=== PATIENT | female | born 1985 | race African-American/Black ===

== ENCOUNTER 2016-04-20 12:53 | Emergency (ER) | payer SELFPAY ==
[2016-04-20 13:35] LABS: APPEARANCE CLOUDY (CLEAR); BILIRUBIN NEGATIVE (NEGATIVE); COLOR YELLOW (YELLOW); GLUCOSE NEGATIVE (NEGATIVE); KETONE NEGATIVE (NEGATIVE); LEUKOCYTE ESTERASE 2+ (NEGATIVE); NITRITE NEGATIVE (NEGATIVE); PROTEIN 2+ mg/dL (NEGATIVE); RED CELLS - URINE 0-5 /hpf (0-5); UROBILINOGEN NORMAL (NORMAL)
[2016-04-20 13:36] LABS: AMORPHOUS SEDIMENT >1+ /lpf (NONE SEEN); BACTERIA MODERATE /hpf (NONE SEEN); GRANULAR CAST NONE SEEN /lpf (NONE SEEN); HYALINE CAST NONE SEEN /lpf (NONE SEEN); MUCUS >1+ /lpf (NONE SEEN); RED CELL CAST NONE SEEN /lpf (NONE SEEN); SPERMATOZOA NONE SEEN /hpf (NONE SEEN); WAXY CAST NONE SEEN /lpf (NONE SEEN); YEAST NONE SEEN /hpf (NONE SEEN)
== END 2016-04-20 14:00 | disposition home or self-care (01) ==
LOC: D.ER 12:53
PROVIDERS: Emergency Medicine
DX: K08.89 Other specified disorders of teeth and supporting structures (principal); K02.9 Dental caries, unspecified; K04.7 Periapical abscess without sinus; I10 Essential (primary) hypertension; F17.200 Nicotine dependence, unspecified, uncomplicated

== ENCOUNTER 2016-05-05 21:24 | Emergency (ER) | payer SELFPAY ==
[2016-05-05 22:58] LABS: BASOPHILS 0.2 % (0.0-2.0); EOSINOPHILS 1.7 % (0-7); HEMATOCRIT 37.4 % (36.0-48.0); HEMOGLOBIN 12.2 g/dL (12-16); IMMATURE GRANULOCYTES 0.1 % (0-5); LYMPHOCYTES 42.6 % (15-50); MCH 26.5 pg (26.0-34.0); MCHC 32.6 g/dL (31.0-37.0); MCV 81.3 fL (80.0-100.0); MEAN PLATELET VOLUME 9.5 fL (7.4-10.4); MONOCYTES 4.2 % (2-11); NEUTROPHILS 51.2 % (40-80); PLATELET COUNT 284 10x3/uL (130-400); RDW 14.9 % (11.5-14.5); WBC 8.4 10x3/uL (4.8-10.8)
[2016-05-05 23:18] LABS: HCG SERUM POSITIVE (NEGATIVE)
[2016-05-05 23:21] LABS: ALBUMIN 3.6 g/dL (3.4-5.0); ALKALINE PHOSPHATASE 61 U/L (46-116); ALT (SGPT) 19 U/L (10-68); CALC OSMOLALITY 271 mosm/kg (275-300); CALCIUM 8.9 mg/dL (8.5-10.1); CARBON DIOXIDE 26.7 mmol/L (21.0-32.0); CHLORIDE - SERUM 102 mmol/L (98-107); CREATININE - SERUM 0.7 mg/dL (0.6-1.3); GLUCOSE 86 mg/dL (74-106); PROTEIN - SERUM 7.7 g/dL (6.4-8.2); SODIUM 138 mmol/L (136-145); UREA NITROGEN 5 mg/dL (7-18); eGFR NON AFRICAN AMERICAN > 90 mL/min (90-120)
[2016-05-05 23:31] LABS: APPEARANCE HAZY (CLEAR); BILIRUBIN NEGATIVE (NEGATIVE); COLOR YELLOW (YELLOW); GLUCOSE NEGATIVE (NEGATIVE); KETONE NEGATIVE (NEGATIVE); LEUKOCYTE ESTERASE 1+ (NEGATIVE); NITRITE NEGATIVE (NEGATIVE); PROTEIN TRACE mg/dL (NEGATIVE); SPECIFIC GRAVITY 1.015 (1.005-1.020); UROBILINOGEN NORMAL (NORMAL)
[2016-05-05 23:42] LABS: BACTERIA MODERATE /hpf (NONE SEEN); EPITHELIAL CELLS 0-5 /hpf (0-5); RED CELLS - URINE 0-5 /hpf (0-5)
[2016-05-05 23:43] LABS: GRANULAR CAST RARE /lpf (NONE SEEN); HYALINE CAST OCC /lpf (NONE SEEN)
[2016-05-06 00:03] LABS: HCG - QUANTITATIVE (MATERNAL) 1146 mIU/mL
== END 2016-05-06 02:10 | disposition home or self-care (01) ==
LOC: D.ER 21:24
PROVIDERS: Emergency Medicine; Nurse Practitioner Acute Care
DX: O23.41 Unspecified infection of urinary tract in pregnancy, first trimester (principal); Z3A.01 Less than 8 weeks gestation of pregnancy; F17.200 Nicotine dependence, unspecified, uncomplicated

== ENCOUNTER 2016-05-07 03:03 | Emergency (ER) | payer SELFPAY | END 2016-05-07 03:45 | disposition left against medical advice (07) | LOC: D.ER 03:03 | DX: N93.9 Abnormal uterine and vaginal bleeding, unspecified (principal); I10 Essential (primary) hypertension ==

== ENCOUNTER 2019-03-21 18:32 | Emergency (ER) | payer SELFPAY ==
[~2019-03-21] VITALS: Ht 162.6 cm; Wt 77.3 kg
[2019-03-21 18:39] VITALS: Ht 162.6 cm; Wt 77.3 kg
[2019-03-21 19:03] LABS: BASOPHILS 0.3 % (0-2); HEMATOCRIT 40.4 % (36.0-48.0); HEMOGLOBIN 12.9 g/dL (12-16); IMMATURE GRANULOCYTES 0.1 % (0-5); LYMPHOCYTES 42.8 % (15-50); MCH 26.4 pg (26.0-34.0); MCHC 31.9 g/dL (31.0-37.0); MCV 82.8 fL (80.0-100.0); MEAN PLATELET VOLUME 9.1 fL (7.4-10.4); MONOCYTES 2.9 % (2-11); NEUTROPHILS 52.9 % (40-80); PLATELET COUNT 293 10x3/uL (130-400); RBC 4.88 10x6/uL (4.00-5.40); RDW 14.5 % (11.5-14.5); WBC 7.3 10x3/uL (4.8-10.8)
[2019-03-21 19:14] LABS: CALC OSMOLALITY 283 mosm/kg (275-300); CALCIUM 8.8 mg/dL (8.5-10.1); CARBON DIOXIDE 28.3 mmol/L (21.0-32.0); CHLORIDE - SERUM 107 mmol/L (98-107); CREATININE - SERUM 0.9 mg/dL (0.6-1.3); GLUCOSE 109 mg/dL (74-106); POTASSIUM - SERUM 3.4 mmol/L (3.5-5.1); SODIUM 143 mmol/L (136-145); UREA NITROGEN 7 mg/dL (7-18); eGFR NON AFRICAN AMERICAN 76 mL/min (90-120)
[2019-03-21 19:22] LABS: ALBUMIN 3.6 g/dL (3.4-5.0); ALKALINE PHOSPHATASE 69 U/L (46-116); ALT (SGPT) 19 U/L (10-68); AMYLASE - SERUM 75 U/L (25-115); BILIRUBIN - TOTAL 0.39 mg/dL (0.2-1.3); LIPASE 188 U/L (73-393); PROTEIN - SERUM 7.8 g/dL (6.4-8.2)
[2019-03-21 19:26] LABS: HCG SERUM NEGATIVE (NEGATIVE)
[2019-03-21 19:57] LABS: APPEARANCE CLEAR (CLEAR); BILIRUBIN NEGATIVE (NEGATIVE); COLOR YELLOW (YELLOW); GLUCOSE 100 mg/dL (NEGATIVE); KETONE NEGATIVE (NEGATIVE); NITRITE NEGATIVE (NEGATIVE); PROTEIN NEGATIVE (NEGATIVE); SPECIFIC GRAVITY 1.025 (1.005-1.020); UROBILINOGEN NORMAL (NORMAL)
[2019-03-21 22:36] VITALS: BP 145/60
[2019-03-21] MEDS ORDERED: METHOCARBAMOL750 MG NG (23:27)
== END 2019-03-21 23:28 | disposition home or self-care (01) ==
LOC: D.ER 18:32
PROVIDERS: Family Medicine
DX: N92.6 Irregular menstruation, unspecified (principal)

== ENCOUNTER 2019-04-27 07:06 | Emergency (ER) | payer SELFPAY ==
[~2019-04-27] VITALS: Ht 162.6 cm; Wt 77.3 kg
[~2019-04-27 07:06] MED LIST: METHOCARBAMOL750 MG NG
[2019-04-27 07:13] VITALS: Ht 162.6 cm; Wt 77.3 kg
[2019-04-27] MEDS ORDERED: ULTRAM50 MG PO (07:34)
[2019-04-27] MEDS ORDERED: FLAGYL500 MG PO (07:34)
[2019-04-27] MEDS ORDERED: DOXYCYCLINE HY100 M2 PO (07:34)
--- NOTE | 2019-04-27 08:28 | NUR ---
PT IS AT A MODERATE RISK FOR SUICIDE PER ASSESSMENT. NO SITTER NEEDED. RESOURCES GIVEN AND PT VERBALIZED UNDERSTANDING. ALSO GAVE INFORMATION IN REGARDS TO [facility]. PT DENIES SI AT THIS TIME BUT DOES ADMIT TO SOME DEPRESSION. PT IS ON AN ANTI-DEPRESSANT. PT DOES HAVE A HX OF A SUICIDE ATTEMPT BY OVERDOSE. PT STATED, "IT WAS YEARS AGO IN [place]. I GOT HELP IN ONE OF THOSE PSYCH PLACES."
[2019-04-27 08:46] VITALS: BP 168/100
== END 2019-04-27 08:47 | disposition home or self-care (01) ==
LOC: D.ER 07:06
DX: K12.39 Other oral mucositis (ulcerative) (principal); M54.89 Other dorsalgia; N89.8 Other specified noninflammatory disorders of vagina; W19.XXXA Unspecified fall, initial encounter; Y93.9 Activity, unspecified; Y92.9 Unspecified place or not applicable; Z72.0 Tobacco use